=== PATIENT | female | born 1945 | race Caucasian/White ===

== ENCOUNTER 2024-07-19 05:26 | Inpatient (IN) | payer MEDICARE, BC ==
[2024-07-13 11:19] LABS: BASOPHILS % (AUTO) 0.7 % (0-1); EOSINOPHILS # (AUTO) 0.2 X10'3 (0-0.9); EOSINOPHILS % (AUTO) 3.8 % (0-6); LYMPHOCYTES # (AUTO) 1.4 X10'3 (1.1-4.8); LYMPHOCYTES % (AUTO) 25.7 % (21-51); MEAN CORPUSCULAR HEMOGLOBIN 30.9 PG (27.0-31.0); MEAN CORPUSCULAR HGB CONC 32.9 g/dL (33.0-36.5); MEAN PLATELET VOLUME 7.3 FL (7.4-10.4); MONOCYTES # (AUTO) 0.4 X10'3 (0-0.9); MONOCYTES % (AUTO) 7.3 % (2-12); NEUTROPHILS # (AUTO) 3.3 X10'3 (1.8-7.7); NEUTROPHILS % (AUTO) 62.5 % (42-75); PRE OP HEMATOCRIT 41.2 % (35.0-45.0); PRE OP HEMOGLOBIN 13.5 g/dL (12.0-16.0); PRE OP PLATELET COUNT 170 X10'3 (140-440); PRE OP WHITE BLOOD COUNT 5.3 10'3 (4.8-10.8); RED BLOOD COUNT 4.38 X10'6 (4.20-5.60); RED CELL DISTRIBUTION WIDTH 14.1 % (11.5-14.5)
[2024-07-13 11:21] LABS: BILIRUBIN,URINE NEGATIVE (Neg); CLARITY,URINE CLEAR (Clear); COLOR,URINE STRAW (Yellow); GLUCOSE, URINE NEGATIVE (Neg); KETONES,URINE NEGATIVE (Neg); LEUKOCYTE ESTERASE ,URINE NEGATIVE (Neg); NITRITES, URINE NEGATIVE (Neg); OCCULT BLOOD,URINE NEGATIVE (Neg); PH,URINE 6.5 (4.8-8.0); PROTEIN,URINE NEGATIVE (Neg); UROBILINOGEN,URINE 0.2 E.U/dL (0.2-1.0)
[2024-07-13 11:24] LABS: PRE OP PROTIME 10.5 SECONDS (9.0-12.0)
[2024-07-13 11:25] LABS: UA COLLECTION TYPE CLN CATCH MIDSTREAM
[2024-07-13 11:35] LABS: ALBUMIN 3.8 G/DL (3.4-5.0); ALBUMIN/GLOBULIN RATIO 1.2 (1.1-1.5); ALKALINE PHOSPHATASE 78 IU/L (46-116); BLOOD UREA NITROGEN 10 MG/DL (7-18); BUN/CREATININE RATIO 14.9 (10.0-20.0); CHLORIDE 104 MMOL/L (99-107); CREATININE 0.67 MG/DL (0.40-0.90); PRE OP ALT 30 U/L (30-65); PRE OP ANION GAP 5 (8-16); PRE OP AST 16 U/L (10-37); PRE OP BILIRUB, TOTAL 0.9 MG/DL (0.0-1.0); PRE OP GLUCOSE 96 MG/DL (70-104); PRE OP POTASSIUM 3.9 MMOL/L (3.4-5.1); PRE OP SODIUM 141 MMOL/L (135-145); THYROID STIMULATING HORMONE 0.23 ulU/ml (0.34-4.50); TOTAL CARBON DIOXIDE 31.7 MMOL/L (24-32); TOTAL PROTEIN 7.1 G/DL (6.4-8.2); eGFR 86 ML/MIN
[2024-07-19] VITALS (43 sets, daily range): BP systolic 96–189; BP diastolic 52–101; PULSE 63–88; RESP 8–24; TEMP 97–98.7; O2SAT 91–99
[~2024-07-19] VITALS: Ht 162.6 cm; Wt 81.8 kg
[~2024-07-19 05:26] MED LIST: APIX5TAB3 PO; ASPI-612 PO; ATOR20TA66 PO; CARV3.122 PO; CETI10TA14 PO; CHOL100025 PO; CYAN250010 PO; DENO60DI SUBCUT; DILT180C76 PO; FIBER PO; LACT1CAP65 PO; LEVO125T PO; LOSA100T58 PO; UBID100C16 PO
[2024-07-19] MEDS: DOCUMENT DATE & TIME OF BETA-BLOCKER PO ONE (05:30)
[2024-07-19] MEDS: ceFAZolin 2gm in dextrose, iso 50 ML IV ONE (05:30)
[2024-07-19] MEDS ORDERED: ondansetron/PF 4mg/2ml inj IV PRN ×3 (05:30→08:15)
[2024-07-19] MEDS: famotidine 20mg tablet PO ONE (06:26)
[2024-07-19] MEDS: ringers solution, lacted 1,000 ML IV SCH ×2 (06:26→08:49)
[2024-07-19] MEDS: vancomycin 1,500 MG in NS 300ml IV soln IV ONE (06:47)
[2024-07-19] MEDS ORDERED: iohexol 350MG/ML 100ml bottle IV ONE (06:47)
[2024-07-19] MEDS ORDERED: sevoflurane 250ml liquid IH ONE (07:08)
[2024-07-19] MEDS ORDERED: midazolam 1 mg/ML 2ml injection ONE (07:11)
[2024-07-19] MEDS ORDERED: fentaNYL/PF 50MCG/1 ML 2ML syringe ONE (07:11)
[2024-07-19] MEDS ORDERED: propofol inj 20 ML IV ONE (07:30)
[2024-07-19] MEDS ORDERED: heparin 1,000unit/ml 10ml vial 10 ML ONE (07:30)
[2024-07-19] MEDS ORDERED: rocuronium 10mg/ml inj IV ONE (07:30)
[2024-07-19] MEDS ORDERED: ondansetron/PF 4mg/2ml inj ONE (07:46)
[2024-07-19] MEDS ORDERED: dexamethasone sod phosphate 4mg/ml inj. ONE (07:46)
[2024-07-19] MEDS ORDERED: proCHLORperazine 10 MG/2 ml inj IV PRN ×2 (07:55→08:15)
[2024-07-19] MEDS ORDERED: meperidine/PF 25mg/ml syringe IV PRN ×2 (07:55)
[2024-07-19] MEDS ORDERED: sugammadex 200mg/2ml injection IV ONE (08:00)
[2024-07-19] MEDS ORDERED: potassium Cl 40MEQ/270ML bag 250 ML IV PRN (08:15)
[2024-07-19] MEDS ORDERED: magnesium sulf-water 4G/100mL 100 ML IV PRN (08:15)
[2024-07-19] MEDS ORDERED: potassium Cl 40MEQ/1/2NS 520ml 520 ML IV PRN (08:15)
[2024-07-19] MEDS ORDERED: diphenhydrAMINE 25mg capsule PO PRN (08:15)
[2024-07-19] MEDS ORDERED: potassium Cl 20mEq/100mL bag 100 ML IV PRN (08:15)
[2024-07-19] MEDS ORDERED: docusate sod 100mg capsule PO PRN (08:15)
[2024-07-19] MEDS ORDERED: ALPRAZolam 0.25mg tablet PO PRN (08:15)
[2024-07-19] MEDS: normal saline 1000ml 1,000 ML IV SCH (08:15)
[2024-07-19] MEDS ORDERED: acetaminophen 325mg tablet PO PRN (08:15)
[2024-07-19] MEDS ORDERED: pantoprazole 40mg Tablet.DR PO PRN (08:15)
[2024-07-19] MEDS ORDERED: HYDROcodone/acetaminophen 5mg/325mg tablet PO PRN (08:15)
[2024-07-19] MEDS ORDERED: magnesium sulf-water 2g/50mL 50 ML IV PRN (08:15)
[2024-07-19] MEDS ORDERED: potassium CL 10mEq/100ml bag 100 ML IV PRN (08:15)
[2024-07-19] MEDS: meperidine/PF 25mg/ml syringe IV PRN (09:31)
[2024-07-19] MEDS: hydrALAZINE 20mg/ml inj. IV PRN (11:25)
[2024-07-19] MEDS: diltiazem CD 180mg cap (once-daily) PO SCH (11:29)
[2024-07-19] MEDS: ceFAZolin 1GM/D5W- ADD-VANTAGE 50 ML IV SCH (14:58)
[2024-07-19] MEDS: sod chloride 0.9% 10ml flush syringe IV SCH (14:58)
[2024-07-19] MEDS: apixaban 5mg tablet PO SCH (19:55)
[2024-07-19] MEDS: atorvastatin 20mg tablet PO SCH (19:56)
[2024-07-19] MEDS: carVEDilol 3.125mg tablet PO SCH (19:57)
[2024-07-19] MEDS: VANCOMYCIN 1GM 200ML H20 (PEG) 200 ML IV SCH (20:23)
[2024-07-20] VITALS (10 sets, daily range): BP systolic 114–150; BP diastolic 53–83; PULSE 64–80; RESP 14–20; TEMP 97.2–98; O2SAT 94–96
[2024-07-20] MEDS: potassium Cl 20 mEq SR tablet PO PRN (05:04)
[2024-07-20] MEDS: labetalol 20mg/4ml (5mg/ml) syringe IV PRN (05:56)
[2024-07-20] MEDS ORDERED: diltiazem CD 180mg cap (once-daily) PO SCH (08:00)
[2024-07-20] MEDS: levoTHYROXINE 125mcg tablet PO SCH (08:00)
[2024-07-20 08:10] LABS: BASOPHILS % (AUTO) 0.1 % (0-1); EOSINOPHILS % (AUTO) 0 % (0-6); HEMATOCRIT 37.6 % (35.0-45.0); HEMOGLOBIN 12.4 g/dl (12.0-16.0); LYMPHOCYTES # (AUTO) 1.1 X10'3 (1.1-4.8); LYMPHOCYTES % (AUTO) 11.8 % (21-51); MEAN CORPUSCULAR HEMOGLOBIN 30.9 PG (27.0-31.0); MEAN CORPUSCULAR VOLUME 93.6 FL (78-98); MEAN PLATELET VOLUME 7.4 FL (7.4-10.4); MONOCYTES # (AUTO) 0.5 X10'3 (0-0.9); MONOCYTES % (AUTO) 5.2 % (2-12); NEUTROPHILS # (AUTO) 7.5 X10'3 (1.8-7.7); NEUTROPHILS % (AUTO) 82.9 % (42-75); PLATELET COUNT 177 X10'3 (140-440); RED BLOOD COUNT 4.02 X10'6 (4.20-5.60); RED CELL DISTRIBUTION WIDTH 13.8 % (11.5-14.5)
[2024-07-20] MEDS: cholecalciferol (vitamin D3) 1,000 unit (25mcg) tablet PO SCH (08:10)
[2024-07-20] MEDS: cyanocobalamin 500mcg tablet PO SCH (08:11)
[2024-07-20] MEDS: aspirin 81mg, enteric-coated 1 TAB TABLET.DR PO SCH (08:11)
[2024-07-20 09:01] LABS: ALANINE AMINOTRANSFERASE 16 U/L (12-78); ALBUMIN 3.4 G/DL (3.4-5.0); ALBUMIN/GLOBULIN RATIO 1.2 (1.1-1.5); ALKALINE PHOSPHATASE 57 IU/L (46-116); ANION GAP 6 (8-16); ASPARTATE AMINO TRANSFERASE 13 U/L (10-37); BILIRUBIN,TOTAL 0.4 MG/DL (0.1-1.0); BLOOD UREA NITROGEN 12 MG/DL (7-18); BUN/CREATININE RATIO 17.1 (10.0-20.0); CALCIUM 8.3 MG/DL (8.5-10.1); CHLORIDE 104 MMOL/L (99-107); GLUCOSE 132 MG/DL (70-104); MAGNESIUM 2.1 MG/DL (1.5-2.4); POTASSIUM 4.1 MMOL/L (3.5-5.1); PRO BRAIN NATRIURETIC PEPTIDE 941 PG/ML (0-450); SODIUM 136 MMOL/L (135-145); TOTAL CARBON DIOXIDE 26.4 MMOL/L (24-32); TOTAL PROTEIN 6.3 G/DL (6.4-8.2); eCRCL 58 ML/MIN; eGFR 81 ML/MIN
[2024-07-20 09:30] LABS: PROTHROMBIN TIME 10.6 SECONDS (9.0-12.0)
[2024-07-20] MEDS ORDERED: benzocaine (Anbesol) 12ml bottle MM PRN (11:10)
== END 2024-07-20 14:54 | disposition home or self-care (01) | DRG 274 ==
LOC: PAS IN 05:26 → EDSTATUS 07:30 → PCU 3S 12:16
PROVIDERS: ADMIT Student in an Organized Health Care Education/Training Program; ATTEND Student in an Organized Health Care Education/Training Program
PROC: B246ZZ4 Ultrasonography of Right and Left Heart, Transesophageal (ICD-10-PCS; 2024-07-19)
PROC: 03HY32Z Insertion of Monitoring Device into Upper Artery, Percutaneous Approach (ICD-10-PCS; 2024-07-19)
PROC: B54BZZA Ultrasonography of Right Lower Extremity Veins, Guidance (ICD-10-PCS; 2024-07-19)
PROC: 02L73DK Occlusion of Left Atrial Appendage with Intraluminal Device, Percutaneous Approach (ICD-10-PCS; principal; 2024-07-19 07:08)
DX: I48.91 Unspecified atrial fibrillation (principal); Z00.6 Encounter for examination for normal comparison and control in clinical research program; Z79.01 Long term (current) use of anticoagulants
CPT/HCPCS: 33340; 36415; 71045; 71046; 76937; 80053; 81003; 82948; 83735; 83880; 84443; 85025; 85347; 85610; 85730; 86885; 86900; 86901; 86920; 87081; 93005; 93308; 93312; 93325; A4615; A4618; A6258; A6449; C1760; C1889; C1893; C1894; G0378; J0360; J0690; J1100; J1644; J2175; J2250; J2405; J2704; J3010; J3372; J3490; J7040; J7120; Q9967

== ENCOUNTER 2024-08-28 10:48 | Day surgery (SDC) | payer MEDICARE, BC ==
[2024-08-28] VITALS (12 sets, daily range): BP systolic 133–200; BP diastolic 66–101; PULSE 60–76; RESP 10–22; TEMP 98.2; O2SAT 94–99
[~2024-08-28] VITALS: Ht 165.1 cm; Wt 83.6 kg
[2024-08-28 12:05] LABS: BASOPHILS # (AUTO) 0.1 X10'3 (0-0.2); BASOPHILS % (AUTO) 1.1 % (0-1); EOSINOPHILS # (AUTO) 0.3 X10'3 (0-0.9); EOSINOPHILS % (AUTO) 5.6 % (0-6); HEMOGLOBIN 13.6 g/dl (12.0-16.0); LYMPHOCYTES # (AUTO) 1.8 X10'3 (1.1-4.8); LYMPHOCYTES % (AUTO) 31.9 % (21-51); MEAN CORPUSCULAR HEMOGLOBIN 31.3 PG (27.0-31.0); MEAN CORPUSCULAR HGB CONC 33.9 g/dL (33.0-36.5); MEAN CORPUSCULAR VOLUME 92.2 FL (78-98); MEAN PLATELET VOLUME 7.8 FL (7.4-10.4); MONOCYTES # (AUTO) 0.5 X10'3 (0-0.9); MONOCYTES % (AUTO) 9.4 % (2-12); NEUTROPHILS # (AUTO) 2.9 X10'3 (1.8-7.7); PLATELET COUNT 168 X10'3 (140-440); RED BLOOD COUNT 4.33 X10'6 (4.20-5.60); RED CELL DISTRIBUTION WIDTH 14.5 % (11.5-14.5); WHITE BLOOD COUNT 5.6 X10'3 (4.5-11.0)
[2024-08-28 12:24] LABS: ALBUMIN 3.8 G/DL (3.4-5.0); ANION GAP 8 (8-16); BLOOD UREA NITROGEN 13 MG/DL (7-18); BUN/CREATININE RATIO 17.8 (10.0-20.0); CALCIUM 9.2 MG/DL (8.5-10.1); CHLORIDE 105 MMOL/L (99-107); CREATININE 0.73 MG/DL (0.40-0.90); GLUCOSE 110 MG/DL (70-104); POTASSIUM 4.2 MMOL/L (3.5-5.1); SODIUM 141 MMOL/L (135-145); TOTAL CARBON DIOXIDE 27.6 MMOL/L (24-32); eCRCL 58 ML/MIN; eGFR 77 ML/MIN
[2024-08-28 12:40] LABS: APTT 25 SECONDS (22-32); INR 1.1 INR
[2024-08-28] MEDS: MIDAZolam 1mg/ml 10ml vial IV ONE (13:57)
[2024-08-28] MEDS: fentaNYL/PF 50MCG/1 ML 2ML syringe IV ONE (13:57)
[2024-08-28] MEDS ORDERED: CLOP75TA34 PO (14:13)
== END 2024-08-28 14:40 | disposition home or self-care (01) ==
LOC: SSTAY O 10:48
PROVIDERS: ATTEND Student in an Organized Health Care Education/Training Program
DX: I48.91 Unspecified atrial fibrillation (principal); I10 Essential (primary) hypertension; E78.5 Hyperlipidemia, unspecified; E03.9 Hypothyroidism, unspecified; E66.9 Obesity, unspecified; I25.2 Old myocardial infarction; Z86.73 Personal history of transient ischemic attack (TIA), and cerebral infarction without residual deficits; Z79.01 Long term (current) use of anticoagulants; Z79.82 Long term (current) use of aspirin; Z79.890 Hormone replacement therapy; Z79.899 Other long term (current) drug therapy; Z98.890 Other specified postprocedural states; Z68.30 Body mass index [BMI] 30.0-30.9, adult
CPT/HCPCS: 36415; 80048; 85025; 85610; 85730; 93325; C8925; J2250; J3010; J7030; 93312